=== PATIENT | female | born 1985 | race Caucasian/White ===

== ENCOUNTER 2023-06-29 21:28 | Inpatient (IN) | payer OTHER, SELFPAY ==
[2023-06-29 17:55] VITALS: BMI 40.1
[2023-06-29 18:01] VITALS: BP 114/86
--- NOTE | 2023-06-29 18:25 | ED.GENMED ---
History of Present Illness
<QUINN Foy - Last Filed: 06/29/23 21:41>
General
Chief Complaint: Skin Problem
Source: patient
Exam Limitations: none
Time Seen by Provider: 06/29/23 17:56
Travel History
Have you had any contact with someone who has COVID-19?: No
Do you have any symptoms of coronavirus? Fever > 100 degrees, chills, cough, shortness of breath, sore throat, loss of taste or smell, muscle aches, or headache?: No
History of Present Illness
History of Present Illness:
This is a 37 year old female that comes in with c/o left great toe swelling and redness. States that this started with a hole and blister on the base of the great toe. States that she thought it would go away and they had packed this but it has
gotten worse. States that she has been on Clindamycin and Bactrim for the past 2 weeks. States that they wanted to start an IV at [facility] but they couldn't find a vein. States that she doesn't know what they were going to put her on. Denies any
fever, chills, chest pain, SOB, abd pain, nausea, vomiting, diarrhea, headache, dizziness, urinary burning.
Past History
<QUINN Foy - Last Filed: 06/29/23 21:41>
Past History
ED Past Medical History: HTN, Hypercholesterolemia, NIDDM, Psychiatric (Anxiety, Depression) and Other (Neuropathy, )
ED Past Surgical History: (X 2)
Social History
Tobacco: Former smoker
Alcohol: None
Drug: Other (History of Fentynal use)
Personal: Single
Living: skilled nursing
Review of Systems
<QUINN Foy - Last Filed: 06/29/23 21:41>
Review of Systems
All Other Systems: ROS reviewed and negative except as documented in HPI and ROS
Constitutional: Reports no symptoms; Denies fever or chills
EENT: Reports no symptoms
Respiratory: Reports no symptoms; Denies cough or trouble breathing
Cardiac: Reports no symptoms; Denies chest pain
ABD/GI: Reports no symptoms; Denies abdominal pain, nausea, vomiting or diarrhea
: Reports no symptoms; Denies dysuria, frequency or urgency
Musculoskeletal: Reports no symptoms
Skin: Reports other (Redness and swelling of the left great toe with open wounds)
Neurological: Reports no symptoms; Denies dizzy or headache
Psychiatric: Reports no symptoms
Phy Exam
<QUINN Foy - Last Filed: 06/29/23 21:41>
General Physical Exam
General Presentation: well appearing and no apparent distress
General age: appears stated age
General Skin: warm and dry
General Habitus: normal
General Mental: alert
General Hydration: appears well hydrated
ENT Exam
ENT Exam: TM's normal, pharynx normal and neck supple
Eye Exam
Eye Exam: EOMI
Cardiovascular Exam
Cardiovascular Exam: regular rate/rhythm, no murmur and normal peripheral pulses
Pulmonary Exam
Pulmonary Exam: lungs clear, no respiratory distress, no rales, chest non tender, no crackles, no rhonchi, no wheezing and no cough
Gastrointestinal Exam
Gastrointestinal Exam: normal bowel sounds, non tender, soft, no organomegaly, no pulsatile mass and non distended
Musculoskeletal Exam
Musculoskeletal Exam: edema (of the left great toe with increased warmth)
Skin Exam
Skin Exam: normal color, warm/dry, no petechia and redness (Left great toe wit open wounds on the anterior and posterior toe and the planter aspect of the lateral foot, Slight increased warmth. )
Psychiatric Exam
Psychiatric Exam: normal mood/affect
Course
<QUINN Foy - Last Filed: 06/29/23 21:41>
Orders/Labs/Results
Orders:
Orders
06/29/23 18:24
Test Result ONCE
Toes 2 Views, Left CR [CR Toe(s) Min 2 Vw Left] Urgent
Comment:
Reason For Exam: Swelling with open wounds
Indicate Which Toe:: Great
06/29/23 19:18
Complete Blood Count/With Diff Urgent
Comprehensive Metabolic Panel Urgent
HCG, Serum Qualitative Screen Urgent
Lactic Acid Urgent
Blood Culture Q30M
NANI Source: Blood/Venous
Specimen Description:
06/29/23 19:26
Blood Culture Q30M
NANI Source: Blood/Venous
Specimen Description:
Wound Culture [Wound/Abscess/Other Culture] Urgent
NANI Source: Toe
Specimen Description:
Date Specimen was Collected: 06/29/23
Time Specimen was Collected: 19:22
06/29/23 20:16
Piperacillin/Tazo 3.375 Gram [Zosyn] 3.375 gram in 50 ml IV NOW
Vancomycin 1 Gram/200 ml [Vancocin] 1 gram in 200 ml IV NOW
06/29/23 20:29
Admit/Transfer Patient As Directed
Co-Sign Provider:
Level of Care: Inpatient admission
Assign to:: Medical/Surgical
Physician / Group: estela
Diagnosis: cellulitis toe
Reason for Hospitalization: cellulitis toe
Expected length of stay greater than two midnights?: Yes
ELOS- Estimated Length of Stay in days: 2
I certify the patient meets the requirements for IP care: Yes
06/29/23 20:30
Code Status As Directed
Resuscitation Status: Full Code
06/29/23 22:00
Cefepime HCl [Maxipime] 2,000 mg IV Q12H
Sterile Water [Sterile Water For Injection] 10 ml IV Q12H
Abnormal Lab Results
06/29/23
19:18
RBC 4.13 L 10^6/uL
(4.20-5.40)
Hgb 11.4 L g/dL
(12.0-16.0)
Hct 33.3 L %
(37.0-47.0)
MCV 80.6 L fL
(81.0-99.0)
Abs Immat Gran (auto) 0.1 H 10^3/uL
(0-0.05)
Absolute Lymphs (auto) 3.6 H 10^3/uL
(1.2-3.4)
Immature Gran % 1.0 H %
(0-0.5)
Neutrophils % 39.8 L %
(42.2-75.2)
Glucose 125 H mg/dl
(70-99)
06/29/23 19:18
06/29/23 19:18
H/H slighlty low. Glucose nonfasting. (patient is a diabedic), HCG negative. Lactic acid normal at 1.4
Vital Signs
Initial and Last Documented VS:
Initial Vital Signs
Temp Pulse Resp BP Pulse Ox
97.3 F 88 18 114/86 99
06/29/23 18:01 06/29/23 18:01 06/29/23 18:01 06/29/23 18:01 06/29/23 18:01
Last Documented Vital Signs
Temp Pulse Resp BP Pulse Ox
97.3 F 88 18 114/86 99
06/29/23 18:01 06/29/23 18:01 06/29/23 18:01 06/29/23 18:01 06/29/23 18:01
<Vicente Boykin MD - Last Filed: 06/29/23 20:30>
Orders/Labs/Results
Orders:
Orders
06/29/23 18:24
Test Result ONCE
Toes 2 Views, Left CR [CR Toe(s) Min 2 Vw Left] Urgent
Comment:
Reason For Exam: Swelling with open wounds
Indicate Which Toe:: Great
06/29/23 19:18
Complete Blood Count/With Diff Urgent
Comprehensive Metabolic Panel Urgent
HCG, Serum Qualitative Screen Urgent
Lactic Acid Urgent
Blood Culture Q30M
NANI Source: Blood/Venous
Specimen Description:
06/29/23 19:26
Blood Culture Q30M
NANI Source: Blood/Venous
Specimen Description:
Wound Culture [Wound/Abscess/Other Culture] Urgent
NANI Source: Toe
Specimen Description:
Date Specimen was Collected: 06/29/23
Time Specimen was Collected: 19:22
06/29/23 20:16
Piperacillin/Tazo 3.375 Gram [Zosyn] 3.375 gram in 50 ml IV NOW
Vancomycin 1 Gram/200 ml [Vancocin] 1 gram in 200 ml IV NOW
06/29/23 20:29
Admit/Transfer Patient As Directed
Co-Sign Provider:
Level of Care: Inpatient admission
Assign to:: Medical/Surgical
Physician / Group: estela
Diagnosis: cellulitis toe
Reason for Hospitalization: cellulitis toe
Expected length of stay greater than two midnights?: Yes
ELOS- Estimated Length of Stay in days: 2
I certify the patient meets the requirements for IP care: Yes
06/29/23 20:30
Code Status As Directed
Resuscitation Status: Full Code
06/29/23 22:00
Cefepime HCl [Maxipime] 2,000 mg IV Q12H
Sterile Water [Sterile Water For Injection] 10 ml IV Q12H
Abnormal Lab Results
06/29/23
19:18
RBC 4.13 L 10^6/uL
(4.20-5.40)
Hgb 11.4 L g/dL
(12.0-16.0)
Hct 33.3 L %
(37.0-47.0)
MCV 80.6 L fL
(81.0-99.0)
Abs Immat Gran (auto) 0.1 H 10^3/uL
(0-0.05)
Absolute Lymphs (auto) 3.6 H 10^3/uL
(1.2-3.4)
Immature Gran % 1.0 H %
(0-0.5)
Neutrophils % 39.8 L %
(42.2-75.2)
Glucose 125 H mg/dl
(70-99)
06/29/23 19:18
06/29/23 19:18
Vital Signs
Initial and Last Documented VS:
Initial Vital Signs
Temp Pulse Resp BP Pulse Ox
97.3 F 88 18 114/86 99
06/29/23 18:01 06/29/23 18:01 06/29/23 18:01 06/29/23 18:01 06/29/23 18:01
Last Documented Vital Signs
Temp Pulse Resp BP Pulse Ox
97.3 F 88 18 114/86 99
06/29/23 18:01 06/29/23 18:01 06/29/23 18:01 06/29/23 18:01 06/29/23 18:01
Carmenlt;QUINN Foy - Last Filed: 06/29/23 21:41>
MDM/Problems Addressed
Differential Diagnosis Includes:
Cellulitis, Osteomyelitis
MDM/Problems Addressed:
This is a 37 year old female that comes in with c/o redness and swelling of the left great toe. States that she has been on antibiotics for 2 weeks and that they were going to start IV antibioitic today but they were unable to get IV access.
Will check labs, X-ray toe.
Patient was seen by Dr. Boykin and he is in agreement to admit patient. Questioned patient about her Allergies to Amoxicillin. States that she was given 2 medication as the same time and they were not sure which one she was allergic to. States that
she has take Amoxicillin in the past without any difficulty. Will give Zosyn. Hospitalist notified about admission.
Chronic conditions affecting care: DM
Acute Exacerbation and/or Progression of Chronic Illness: DM
<QUINN Foy - Last Filed: 06/29/23 21:41>
*Radiology
Radiology exam reviewed: radiology read reviewed (Toe X-ray-No focal cortical bony destructive process, radiopaque soft tissue foreign body or soft tissue air/gas. )
*Pulse Oximetry
Patient hypoxic: no
*EKG
Interpreted by ED Provider?: NA
Rate: EKG- N/A
*Electrical Accessories Ii Assembler Interpretation
Rate: Electrical Accessories Ii Assembler- N/A
*Critical Care Note
Total Time (30-74mins, 75-104mins- exclusive of procedures): Not Applicable
ED Attending Note
<QUINN Foy - Last Filed: 06/29/23 21:41>
-
Portions of this chart may have been created with voice recognition software.� Occasional wrong word or��sound alike� substitutions may have occurred due to the inherent limitations of voice recognition software.
<Vicente Boykin MD - Last Filed: 06/29/23 20:30>
ED Attending Note
Patient seen and examined by attending physician: Yes
I performed the substantive portion of visit, reviewed & personally made and approve the management plan that is documented in note by myself or CORNELIA.: Yes
ED Attending Note:
Ongoing cellulitis and swelling to the left great toe. Has been on clindamycin and Bactrim for 1 to 2 weeks. No fever no systemic symptoms.
On exam left great toe is significantly swollen and erythematous. Some mild swelling and redness to the dorsal foot. Given a course of appropriate outpatient antibiotics with ongoing symptoms patient warrants IV antibiotics
Discharge Plan
Departure
Patient Disposition: Admit
Date of Disposition: 06/29/23
Time of Disposition: 20:20
Admit to: Med/Surg
Presentation/result/management discussed w/ accepting MD/DO: Hospitalist
Patient with high blood pressure during this ER visit?: No
Condition: Good
Covid-19: Not Applicable
Discharge Problem:
Cellulitis of great toe of left foot, Open wound of left great toe
Interventions
Interventions:
*Risk Screen - Suicide Last Done: 06/29/23 18:01
*General Assessment Last Done: 06/29/23 18:01
*Neglect/Abuse Screening Last Done: 06/29/23 18:01
*ED COVID-19 Vaccine History Last Done: 06/29/23 18:01
[2023-06-29 19:28] LABS: % Basophils 0.6 % (0-2); % Eosinophils 5.8 % (0-6); % Lymphocytes 46.2 % (20.5-51.1); % Monocytes 6.6 % (1.7-9.3); % Neutrophils 39.8 % (42.2-75.2); Absolute Basophils 0.1 10^3/uL (0-0.2); Absolute Eosinophils 0.5 10^3/uL (0-0.7); Absolute Immature Granulocytes 0.1 10^3/uL (0-0.05); Absolute Lymphocytes 3.6 10^3/uL (1.2-3.4); Absolute Monocytes 0.5 10^3/uL (0.1-0.6); Absolute Neutrophils 3.1 10^3/uL (1.4-6.5); Hematocrit 33.3 % (37.0-47.0); Hemoglobin 11.4 g/dL (12.0-16.0); Mean Corp Hgb Conc. 34.2 g/dL (33.0-37.0); Mean Corpuscular Hgb 27.6 pg (27.0-31.0); Mean Corpuscular Volume 80.6 fL (81.0-99.0); Nucleated Red Blood Cells % 0 %; Platelet Count 341 10^3/uL (130-400); Red Blood Cell Count 4.13 10^6/uL (4.20-5.40); Red Cell Dist. Width 11.6 % (11.5-14.5); White Blood Cell Count 7.8 10^3/uL (4.8-10.8)
[2023-06-29 19:40] LABS: Lactic Acid 1.4 mmol/L (0.7-2.0)
[2023-06-29 19:43] LABS: HCG, Serum Qualitative Screen Negative
[2023-06-29 19:45] LABS: ALT (SGPT) 13 U/L (0-35); AST (SGOT) 18 U/L (14-36); Albumin 4.2 g/dl (3.5-5.0); Alkaline Phosphatase 77 U/L (38-126); Blood Urea Nitrogen 16 mg/dl (7-17); Calcium 9.3 mg/dl (8.4-10.2); Carbon Dioxide 27 mmol/L (22-30); Chloride 100 mmol/L (98-107); Estimated Creatinine Clearance 118 ml/min; Glucose 125 mg/dl (70-99); Potassium 4.6 mmol/L (3.5-5.1); Sodium 135 mmol/L (135-145); Total Bilirubin 0.3 mg/dl (0.2-1.3); Total Protein 7.2 g/dl (6.3-8.2); eGFR > 60.00
--- NOTE | 2023-06-29 20:32 | HPS.HSE ---
Addendum entered and electronically signed by Irena Cox MD 06/29/23 20:36:
Cefepime instead of zosyn due to allergy.
Original Note:
Family Physician
-
Family Physician: Facility [facility]
Chief Complaint
-
left toe swelling
History of Present Illness
37-year-old female past medical history of hypertension, hypercholesteremia, diabetes, anxiety/depression, neuropathy, presenting from [facility] with left great toe swelling and redness. Originally started as a wound and blister on the base of the
great toe. Denies any drainage from the blister. She was treated with clindamycin and Bactrim for 2 weeks. Since then the swelling and redness and has spread to the dorsum of the toe. Denies pain due to neuropathy. Denies fevers or chills,
chest pain, shortness of breath abdominal pain, nausea vomiting, diarrhea, headache, dizziness or urinary symptoms.
She states her A1c was recently 6.1. Blood sugars are usually in 120s.
She denies any recent alcohol, smoking or marijuana use since she is currently incarcerated for 9 months.
Medical History
Past Medical History
Past Medical History: Reports Other (hypertension, hypercholesteremia, diabetes, anxiety/depression, neuropathy,)
Past Surgical History: Reports
Social History
Tobacco: Former Smoker
Alcohol: Occasional
Drug: None
Family History
Family History: Not pertinent
Allergies / Home Medications
Allergies reflects when Allergies were last updated in [facility].
Home Medications with original date entered in [facility]
Allergy/Medication List:
Allergies
Allergy/AdvReac Type Severity Reaction Status Date / Time
amoxicillin [From Augmentin] Allergy Swelling Verified 06/29/23 18:11
clavulanic acid Allergy Swelling Verified 06/29/23 18:11
[From Augmentin]
Review of Systems
-
History Source: Patient
A 12 point ROS was completed and negative except as noted: Yes
Constitutional: Reports No Symptoms
EENT: Reports No Symptoms
Respiratory: Reports No Symptoms
Cardiac: Reports No Symptoms
Abdomen/GI: Reports No Symptoms
: Reports No Symptoms
Musculoskeletal: Reports No Symptoms
Skin: Reports See HPI
Neurological: Reports No Symptoms
Endocrine: Reports No Symptoms
Hematologic/Lymphatic: Reports No Symptoms
Psych: Reports No Symptoms
Physical Exam
Vital Signs
Vital Signs
Temp Pulse Resp BP Pulse Ox
97.3 F 88 18 114/86 99
06/29/23 18:01 06/29/23 18:01 06/29/23 18:01 06/29/23 18:01 06/29/23 18:01
Physical Exam
General: Well Developed, Well Nourished and No Apparent Distress
HEENT: NormoCephalic, Moist mucous membranes and Atraumatic
Respiratory: Clear
Cardiac: S1/S2 and Regular Rhythm; No Murmur or Rub
GI: Soft, Non Tender, Non Distended and Normal Bowel Sounds; No Organomegaly
Rectal: Deferred by Provider
Musculoskeletal: No Clubbing, No Cyanosis and No Edema
Skin: Other (left big toe swelling, erythema, with wound at base ); No Rash
Neuro: Nonfocal/grossly intact
Laboratory Results
-
06/29/23 19:18
06/29/23 19:18
Laboratory Results
Lactic Acid 1.4 mmol/L (0.7-2.0) 06/29/23 19:18
Total Bilirubin 0.3 mg/dl (0.2-1.3) 06/29/23 19:18
AST 18 U/L (14-36) 06/29/23 19:18
ALT 13 U/L (0-35) 06/29/23 19:18
Alkaline Phosphatase 77 U/L (38-126) 06/29/23 19:18
Data Reviewed
-
Lab Data: Labs Reviewed by me
Old Records: Reviewed
Impression/Plan
-
IMPRESSION:
PLAN:
# Left big toe cellulitis
-Does not appear like deep infection however toe x-ray pending to evaluate for osteomyelitis given history of diabetes/diabetic neuropathy
-Wound culture pending
-Blood cultures pending
-Vancomycin, Zosyn
Type 2 diabetes
-Continue metformin
-Insulin sliding scale
Diabetic neuropathy
Essential hypertension
Hypercholesterolemia
Anxiety/depression
-Continue Seroquel, hydroxyzine
Full code
DVT prophylaxis�heparin
Diabetic diet
[2023-06-29] MEDS: ZOSYN 50 IV (20:46)
[2023-06-29] MEDS: VANCOCIN 200 IV ×2 (21:08→23:12)
[2023-06-29 21:57] VITALS: BP 116/87
[2023-06-29] MEDS: MINIPRESS 2 MG PO (22:38)
[2023-06-29] MEDS: PROTONIX 40 MG PO (22:40)
[2023-06-29] MEDS: LIPITOR 20 MG PO (22:41)
[2023-06-29] MEDS: SEROQUEL 100 MG PO (22:42)
[2023-06-29] MEDS: PAMELOR 25 MG PO (22:43)
[2023-06-29] MEDS: MAXIPIME 2000 MG IV (22:45)
[2023-06-29] MEDS: STERILE WATER FOR INJECTION 10 ML IV (22:46)
--- NOTE | 2023-06-29 22:50 | PHA.VAN.IN ---
Assessment
- Assessment
Renal Function: Unknown baseline
Concomitant Antimicrobials: ZOSYN
- Previous Dosing Experience
Previous Regimen: NONE
AUC Dosing Plan
- Dosing Variables
Dosing Weight (kg): 109.3
Dosing CrCl (ml/min): 118
Vd coefficient (L/kg): 0.5
- Empiric Dosing
Initial / Loading Dose: 2GM TOTAL
Maintenance Regimen: 750MG IV Q8H
Estimated AUC (mcg*h/mL): 423
Estimated Peak (mcg*h/mL): 24.6
Estimated Trough (mcg/ml): 12
Estimated Half Life (H): 6.8
Pharmacokinetics Vancomycin I
- -
Patient Age: 37
Patient Sex: Female
Vancomycin Day #: 1
Indication: Skin And Soft Tissue ([L] BIG TOE CELLULITIS)
Requesting Provider: JUAN DIEGO
Height / Weight:
Height 5 ft 5 in
Actual Weight 109.316 kg
Pertinent Past Medical History: FAILED OUTPT TX W/CLINDAMYCIN AND BACTRIM
- Vital Signs / Lab Results
Temp Pulse Resp BP Pulse Ox
97.3 F 83 18 124/67 97
06/29/23 18:01 06/29/23 22:38 06/29/23 21:57 06/29/23 22:38 06/29/23 21:57
Lab Results - Hematology
06/29/23
19:18
WBC 7.8
Lab Results - Chemistry
06/29/23
19:18
BUN 16
Creatinine 0.8
Estimated Creat Clear 118
Albumin 4.2
06/29/23
19:18
Lactic Acid 1.4
[2023-06-30 05:39] LABS: % Basophils 0.6 % (0-2); % Eosinophils 6.2 % (0-6); % Immature Granulocytes 0.8 % (0-0.5); % Neutrophils 34.4 % (42.2-75.2); Absolute Eosinophils 0.4 10^3/uL (0-0.7); Absolute Immature Granulocytes 0.1 10^3/uL (0-0.05); Absolute Lymphocytes 3.3 10^3/uL (1.2-3.4); Absolute Monocytes 0.5 10^3/uL (0.1-0.6); Absolute Neutrophils 2.2 10^3/uL (1.4-6.5); Hematocrit 33.4 % (37.0-47.0); Hemoglobin 11.3 g/dL (12.0-16.0); Mean Corp Hgb Conc. 33.8 g/dL (33.0-37.0); Mean Corpuscular Hgb 28.3 pg (27.0-31.0); Mean Corpuscular Volume 83.7 fL (81.0-99.0); Mean Platelet Volume 8.1 fL (7.4-10.4); Nucleated Red Blood Cells % 0 %; Platelet Count 306 10^3/uL (130-400); Red Blood Cell Count 3.99 10^6/uL (4.20-5.40); Red Cell Dist. Width 11.4 % (11.5-14.5); White Blood Cell Count 6.4 10^3/uL (4.8-10.8)
[2023-06-30 06:02] LABS: ALT (SGPT) 13 U/L (0-35); AST (SGOT) 20 U/L (14-36); Albumin 3.8 g/dl (3.5-5.0); Alkaline Phosphatase 71 U/L (38-126); Blood Urea Nitrogen 14 mg/dl (7-17); Calcium 9.5 mg/dl (8.4-10.2); Carbon Dioxide 24 mmol/L (22-30); Chloride 101 mmol/L (98-107); Estimated Creatinine Clearance > 125 ml/min; Glucose 115 mg/dl (70-99); Potassium 4.8 mmol/L (3.5-5.1); Sodium 136 mmol/L (135-145); Total Bilirubin 0.4 mg/dl (0.2-1.3); Total Protein 6.6 g/dl (6.3-8.2); eGFR > 60.00
[2023-06-30] MEDS: VANCOCIN 150 IV (06:12)
[2023-06-30] MEDS: HEPARIN 5000 UNITS SC ×2 (07:12→22:04)
[2023-06-30] MEDS: MIRALAX 17 GRAMS PO (07:13)
[2023-06-30] MEDS: CYMBALTA DELAYED RELEASE 60 MG PO (07:13)
[2023-06-30] MEDS: SUBUTEX 8 MG SL (07:13)
[2023-06-30 07:17] VITALS: BP 113/78
[2023-06-30] MEDS: ZESTRIL 5 MG PO (07:18)
[2023-06-30] MEDS: ORETIC 25 MG PO (07:18)
[2023-06-30 07:27] LABS: Glucose - Point of Care 124 mg/dl (70-99)
[2023-06-30] MEDS: NOVOLOG FLEXPEN-LOW RESISTANCE SC ×2 (07:28→12:47)
[2023-06-30] MEDS: CYMBALTA DELAYED RELEASE 30 MG PO (07:41)
--- NOTE | 2023-06-30 09:07 | PHA.VAN.FU ---
Vancomycin Assessment / Plan
- Assessment
Renal Function: Stable
WBC's are: WNL
Concomitant Antimicrobials: cefepime
- Dosing Plan
Adjust Regimen to: Vanc 1000mg Q8H starting at 1400
New Regimen Predicts: AUC (447), Peak (26.4), Trough (12.4)
Dosing Comments: predicted half-life 6.4H based on population PK
- Monitoring Plan
No level(s) ordered at this time: consider levels in next few days
- Follow Up
Pharmacy will continue to follow.
Vancomycin Follow UP
- -
Patient Age: 37
Patient Sex: Female
Vancomycin Day #: 2
Indication: Skin And Soft Tissue
Requesting Provider: Dr. Cox
Pertinent Antimicrobial Allergies:
amoxicillin/clavulanate - swelling
Height / Weight:
Height 5 ft 5 in
Actual Weight 109.316 kg
Pertinent Past Medical History: BMI ~40, DM
- Vital Signs / Lab Results
Temp Pulse Resp BP Pulse Ox
97.3 F 78 18 113/78 99
06/29/23 18:01 06/30/23 07:18 06/30/23 07:17 06/30/23 07:18 06/30/23 07:17
Lab Results - Hematology
06/29/23 06/30/23
19:18 04:54
WBC 7.8 6.4
Lab Results - Chemistry
06/29/23 06/30/23
19:18 04:54
BUN 16 14
Creatinine 0.8 0.6
Estimated Creat Clear 118 > 125
Albumin 4.2 3.8
06/29/23
19:18
Lactic Acid 1.4
[2023-06-30] MEDS: MAXIPIME 2000 MG IV ×2 (09:14→22:04)
[2023-06-30 09:34] LABS: Glycohemoglobin (HgbA1c) 6.6 % (4.0-5.6)
[2023-06-30] MEDS: STERILE WATER FOR INJECTION IV (10:45)
[2023-06-30 10:47] VITALS: BP 112/60
[2023-06-30 11:29] LABS: Glucose - Point of Care 175 mg/dl (70-99)
[2023-06-30 12:49] LABS: Glucose - Point of Care 124 mg/dl (70-99)
--- NOTE | 2023-06-30 13:34 | CM ---
Cm reviewed medical records. Patient is currently in police custody. Plan to discharge back to [facility] on discharge.
PLAN: [facility]
[2023-06-30 13:43] VITALS: BP 109/74
--- NOTE | 2023-06-30 14:13 | W.PN.HOSP.TC ---
Today's Communication/Plan
-
Podiatry consult and possible discharge tomorrow
Assessment / Plan
Assessment / Plan
# Left big toe cellulitis
-Does not appear like deep infection however toe x-ray pending to evaluate for osteomyelitis given history of diabetes/diabetic neuropathy
-Wound culture pending
-Blood cultures pending
-Vancomycin, Zosyn
06/29
X-ray showed: The osseous structures comprising the left great toe appear intact without recent cortical fracture, dislocation or focal cortical bony destructive process.
Diffuse soft tissue swelling is noted. No radiopaque soft tissue foreign body or air/gas is seen.
Continue to antibiotic.
Podiatry consult.
Possible discharge tomorrow
Type 2 diabetes
-Continue metformin
-Insulin sliding scale
Diabetic neuropathy
Essential hypertension
Hypercholesterolemia
Anxiety/depression
-Continue Seroquel, hydroxyzine
Full code
DVT prophylaxis�heparin
Diabetic diet
Anticipated Discharge: Within 24 hours
Subjective/Interval History
-
Date of Service: June 30, 2023
Patient seen and examined at bedside, denies any chest pain or shortness of breath, no abdominal pain, no nausea, no vomiting, no diarrhea or constipation.
Podiatry consult.
Objective Data
-
Labs:
Laboratory Results
06/30/23
04:54
WBC 6.4
Hgb 11.3 L
Hct 33.4 L
Plt Count 306
Sodium 136
Potassium 4.8
Chloride 101
Carbon Dioxide 24
BUN 14
Creatinine 0.6
Glucose 115 H
Calcium 9.5
Total Bilirubin 0.4
AST 20
ALT 13
Alkaline Phosphatase 71
Vital Signs:
Vital Signs
Temp Pulse Resp BP Pulse Ox
98.6 F 86 18 109/74 98
06/30/23 13:43 06/30/23 13:43 06/30/23 13:43 06/30/23 13:43 06/30/23 13:43
I&O
06/29/23 06/30/23 07/01/23
06:59 06:59 06:59
Intake Total 1000 / 1000
Output Total 501 / 501
Balance 499 / 499
Physical Exam
-
General: Well Developed and No Apparent Distress
HEENT: Normocephalic, Atraumatic and Moist Mucous Membranes
Respiratory: Clear to Auscultation
Cardiac: Regular Rhythm and S1/S2; Negative Murmur, Rub or Gallop
GI: Soft, Nontender, Nondistended and Normal Bowel Sounds; Negative Organomegaly
Rectal: Deferred by Provider
Musculoskeletal: Other (Left big toe swelling and redness)
Skin: Negative Rash
Neuro: Nonfocal/Grossly Intact
[2023-06-30] MEDS: VANCOCIN 200 IV ×2 (14:37→22:02)
[2023-06-30 15:31] VITALS: BP 111/71
[2023-06-30] MEDS: BENADRYL 25 MG PO (16:14)
--- NOTE | 2023-06-30 16:15 | PTCARENOTE ---
Pt pointing out light red/pink flat blotchy rash on arm proximal to IV site during vanco infusion. Reports slightly itchy but tolerable, no pain, no sign of infiltrate. Infusion stopped. MD notified. Ordered PO benadryl and completed vanco dose.
Rash resolved.
[2023-06-30 16:56] LABS: Glucose - Point of Care 160 mg/dl (70-99)
[2023-06-30] MEDS: NOVOLOG FLEXPEN-LOW RESISTANCE 1 UNITS SC (16:59)
--- NOTE | 2023-06-30 19:41 | W.PN.POD ---
Today's Communication
- Today's Communication
consult for left big toe infection
Assessment / Plan
- -
cellulitis left hallux with severe swelling and redness
concern for osteomyelitis
suggest MRI left foot
Subjective/Objective
- Subjective
37 y/o female presents with left hallux increased swelling and redness
started with hole and blister at base of big toe
was on clindamycin and bactrim for 2 weeks with no progress
attempted IV antibiotics at skilled nursing but unable to find a vein
sent to ER with increased swelling and redness
blood and wound cultures taken
IV zosyn and vancomycin
x-rays taken negative for osteomyelitis
- Objective
Temp Pulse Resp BP Pulse Ox
97.8 F 86 17 111/71 97
06/30/23 15:31 06/30/23 15:31 06/30/23 15:31 06/30/23 15:31 06/30/23 15:31
06/30/23 04:54
06/30/23 04:54
Vital Signs and Lab results were reviewed.
Severe swelling left hallux with erythema entire toe
increased warmth in area
2 small serous draining wounds medial and lateral hallux at IPJ
possibly self inflicted
hallux nail borders ingrown tip. tibial at epinychium
some swelling and redness into dorsum of foot
[2023-06-30 21:43] LABS: Glucose - Point of Care 130 mg/dl (70-99)
[2023-06-30] MEDS: STERILE WATER FOR INJECTION 10 ML IV (22:03)
[2023-06-30] MEDS: SEROQUEL 100 MG PO (22:03)
[2023-06-30] MEDS: PROTONIX 40 MG PO (22:03)
[2023-06-30] MEDS: LIPITOR 20 MG PO (22:04)
[2023-06-30] MEDS: PAMELOR 25 MG PO (22:04)
[2023-06-30] MEDS: MINIPRESS 2 MG PO (22:06)
[2023-06-30 23:06] VITALS: BP 119/73
[2023-06-30] MEDS: ATARAX 75 MG PO (23:43)
[2023-07-01] MEDS: BENADRYL 25 MG PO (05:50)
[2023-07-01] MEDS: FLUSH (NSS) 2 FLUSH IV (05:52)
[2023-07-01] MEDS: VANCOCIN 200 IV ×3 (05:53→21:25)
--- NOTE | 2023-07-01 06:33 | PTCARENOTE ---
Patient continues with small flat red rash shortly after administration of both IV ABX. Rash is localized to area around IV site. Benadryl as per prn order.
[2023-07-01] MEDS: SUBUTEX 8 MG SL (07:15)
[2023-07-01 07:34] VITALS: BP 113/62
[2023-07-01] MEDS: MIRALAX 17 GRAMS PO (07:35)
[2023-07-01] MEDS: CYMBALTA DELAYED RELEASE 30 MG PO (07:36)
[2023-07-01] MEDS: CYMBALTA DELAYED RELEASE 60 MG PO (07:36)
[2023-07-01] MEDS: HEPARIN 5000 UNITS SC ×2 (07:36→21:22)
[2023-07-01] MEDS: ZESTRIL 5 MG PO (07:37)
[2023-07-01] MEDS: ORETIC 25 MG PO (07:37)
[2023-07-01 07:42] LABS: Glucose - Point of Care 148 mg/dl (70-99)
[2023-07-01] MEDS: NOVOLOG FLEXPEN-LOW RESISTANCE SC ×2 (07:42→17:03)
[2023-07-01] MEDS: ATARAX 75 MG PO (07:57)
--- NOTE | 2023-07-01 09:45 | CON.ID ---
Addendum entered and electronically signed by Lana Garcia MD 07/01/23 10:36:
ADDENDUM: Location of diabetic foot infection is LEFT great toe (not right) with wound on medial side of toe.
Original Note:
Consultation
-
Date/Time Consultation Requested: June 30, 2023 9568
Date/Time Consultation Performed: July 01, 2023 [id number]
Requesting Provider: Dr. Amilcar Chiu
Performing Provider: Dr. Lana Garcia
Reason for Consultation: Right big toe infection
Chief Complaint / Past History
Chief Complaint
Worsening right great toe redness and swelling
History of Present Illness
37-year-old female with diabetes mellitus, neuropathy, currently in nursing home who initially developed a blister at the bottom of her right first toe approximately 2 months ago. The blister turned into a large wound. She was placed on several courses
of antibiotics. Eventually the wound healed. However she then developed a wound on the lateral aspect of the toe. About 2 weeks ago her toe became very edematous and red. She was placed on clindamycin and Bactrim without improvement. The
redness progressed up to the forefoot. She was therefore sent to the hospital on June 28. She is currently on vancomycin and cefepime. X-ray of the foot showed no osteomyelitis. She was seen by podiatry who is concerned for underlying
osteomyelitis. MRI has been ordered. She reports that the lateral wound is draining mild amount of clear fluid. There is some improvement of the redness since being in the hospital. No fever or chills.
Past History
Additional Past Medical History:
Hypertension
Diabetes
Neuropathy
Dyslipidemia
Anxiety/depression
Class III obesity BMI 40
Allergy History:
PATIENT DENIES ALLERGY TO AUGMENTIN. SHE TOLERATED AMOXICILLIN MANY TIMES IN THE PAST.
SHE RECEIVED AUGMENTIN AND ANOTHER DRUG AT THE SAME TIME THEN DEVELOPED SWELLING. SWELLING IS FROM THE OTHER DRUG.
amoxicillin [From Augmentin] Allergy (Verified 06/29/23 18:11)
Swelling
clavulanic acid [From Augmentin] Allergy (Verified 06/29/23 18:11)
Swelling
Medications Reviewed: Yes
Current Antibiotics:
Vancomycin
Cefepime
Social History
Tobacco: Former Smoker
Alcohol: Occasional
Living: Shelter
Family History
Family History: Not Pertinent
Review of Systems
Review of Systems
General: Negative Fever, Chills or Change in Appetite
HEENT: Negative Stiff Neck, Sinus Problems, Headache or Pharyngitis
Cardiovascular: Negative Chest Pain
Respiratory: Negative Dyspnea or Cough
Gasteroenterology: Other (no diarrhea); Negative Nausea or Vomiting
Genital / Urological: Negative Dysuria or Flank Pain
Endocrine: Negative Weakness
Neurological: Negative Headache or Dizziness
All systems: All other systems were reviewed and were negative
Vital Signs
Temp Pulse Resp BP Pulse Ox
98.4 F 84 16 113/62 100
07/01/23 07:34 07/01/23 07:37 07/01/23 07:34 07/01/23 07:37 07/01/23 07:34
Physical Exam
Physical Exam
Constitutional: No Acute Distress and Comfortable
Eyes: No Conjunctival Hemorrhage and Sclera Anicteric
Pulmonary: Clear
Gastrointestinal: Soft, Non Tender and Non Distended
Extremities: Pulses (palpable strong pedal pulses right dorsal pedalis); Negative Edema
Wound: Other (Right hallux: significant erythema, + scab base of toe; lateral toe with 3mm wound serous drainage surrounded by erythema and warmth to met head)
Neurological: AO x 3
Lab / Diagnostic Study Results
06/30/23 04:54
06/30/23 04:54
Abs Immat Gran (auto) 0.1 10^3/uL (0-0.05) H 06/30/23 04:54
Absolute Neuts (auto) 2.2 10^3/uL (1.4-6.5) 06/30/23 04:54
Absolute Lymphs (auto) 3.3 10^3/uL (1.2-3.4) 06/30/23 04:54
Absolute Monos (auto) 0.5 10^3/uL (0.1-0.6) 06/30/23 04:54
Absolute Basos (auto) 0.0 10^3/uL (0-0.2) 06/30/23 04:54
Immature Gran % 0.8 % (0-0.5) H 06/30/23 04:54
Neutrophils % 34.4 % (42.2-75.2) L 06/30/23 04:54
Lymphocytes % 51.0 % (20.5-51.1) 06/30/23 04:54
Monocytes % 7.0 % (1.7-9.3) 06/30/23 04:54
Eosinophils % 6.2 % (0-6) H 06/30/23 04:54
Basophils % 0.6 % (0-2) 06/30/23 04:54
Lactic Acid 1.4 mmol/L (0.7-2.0) 06/29/23 19:18
Microbiology Results
Micro:
06/29/23 19:26 Blood Culture - Preliminary
Blood/Venous No Growth in 24 hours- Final report to follow
06/29/23 19:18 Blood Culture - Preliminary
Blood/Venous No Growth in 24 hours- Final report to follow
06/29/23 19:26 Wound Culture - Preliminary
Toe Gram Stain - Preliminary
06/29/23 Toe XRAY: No focal cortical bony destructive process, radiopaque soft tissue foreign body or soft tissue air/gas.
Assessment / Plan
# Right hallux diabetic ulcer with cellulitis and probable osteomyelitis
- Agree with MRI w and wo.
- Can continue Vancomycin and cefepime for now pending MRI.
- Follow clinically.
[2023-07-01] MEDS: MAXIPIME 2000 MG IV ×2 (09:53→21:28)
[2023-07-01] MEDS: STERILE WATER FOR INJECTION 10 ML IV ×2 (09:54→21:28)
--- NOTE | 2023-07-01 10:37 | PHA.VAN.FU ---
Vancomycin Assessment / Plan
- Assessment
Renal Function: SCR Decreasing (WNL)
WBC's are: WNL
In the past 24 hrs, patient has been: Afebrile
Concomitant Antimicrobials: cefepime
- Dosing Plan
Continue: vancomycin 1000 mg q8h - first dose 1400 on 06/30/23
- Monitoring Plan
Peak Level: 07/01 00:30 - after 5th 1000 mg dose
Trough Level: 07/01 05:30
- Follow Up
Pharmacy will continue to follow.
Vancomycin Follow UP
- -
Patient Age: 37
Patient Sex: Female
Vancomycin Day #: 3
Indication: Skin And Soft Tissue
Requesting Provider: Dr. Cox
Pertinent Antimicrobial Allergies:
amoxicillin/clavulanate - swelling
Height / Weight:
Height 5 ft 5 in
Actual Weight 109.316 kg
Pertinent Past Medical History: BMI ~40, DM
- Vital Signs / Lab Results
Temp Pulse Resp BP Pulse Ox
98.4 F 84 16 113/62 100
07/01/23 07:34 07/01/23 07:37 07/01/23 07:34 07/01/23 07:37 07/01/23 07:34
Lab Results - Hematology
06/29/23 06/30/23
19:18 04:54
WBC 7.8 6.4
Lab Results - Chemistry
06/29/23 06/30/23
19:18 04:54
BUN 16 14
Creatinine 0.8 0.6
Estimated Creat Clear 118 > 125
Albumin 4.2 3.8
06/29/23
19:18
Lactic Acid 1.4
Microbiology Results
06/29/23 19:26 Blood Culture - Preliminary
Blood/Venous No Growth in 24 hours- Final report to follow
06/29/23 19:18 Blood Culture - Preliminary
Blood/Venous No Growth in 24 hours- Final report to follow
06/29/23 19:26 Wound Culture - Preliminary
Toe Gram Stain - Preliminary
[2023-07-01 11:30] LABS: Glucose - Point of Care 160 mg/dl (70-99)
--- NOTE | 2023-07-01 14:32 | CM ---
Case management following for d/c planning
Chart reviewed
Pt from [facility]
Admitted with right hallux diabetic ulcer with cellulitis and probable osteomyelitis
Pending MRI
Receiving Vancomycin and cefepime
Plan - return to [facility] when medically stable
P - [phone]
[2023-07-01] MEDS: NOVOLOG FLEXPEN-LOW RESISTANCE 1 UNITS SC (14:51)
[2023-07-01 15:14] VITALS: BP 108/73
--- NOTE | 2023-07-01 15:15 | W.PN.HOSP.TC ---
Today's Communication/Plan
-
Discharge if MRI negative
Assessment / Plan
Assessment / Plan
# Left big toe cellulitis rule out osteomyelitis
-Does not appear like deep infection however toe x-ray pending to evaluate for osteomyelitis given history of diabetes/diabetic neuropathy
-Wound culture pending
-Blood cultures pending
-Vancomycin, Zosyn
06/29
X-ray showed: The osseous structures comprising the left great toe appear intact without recent cortical fracture, dislocation or focal cortical bony destructive process.
Diffuse soft tissue swelling is noted. No radiopaque soft tissue foreign body or air/gas is seen.
Continue to antibiotic.
Podiatry consult.
Possible discharge tomorrow
06/30
Seen by podiatry and infectious disease.
Pending MRI
Type 2 diabetes
-Continue metformin
-Insulin sliding scale
Diabetic neuropathy
History of hypertension
Continue current meds
History of hyperlipidemia
Continue statin
Anxiety/depression
-Continue Seroquel, hydroxyzine
CODE STATUS: Full code
DVT prophylaxis: Heparin
Diet: Diabetic diet
Anticipated Discharge: Within 24 hours
Subjective/Interval History
-
Date of Service: July 01, 2023
Patient seen and examined at bedside, denies any chest pain or shortness of breath, no abdominal pain, no nausea, no vomiting, no diarrhea or constipation.
Pending MRI
Objective Data
-
Vital Signs:
Vital Signs
Temp Pulse Resp BP Pulse Ox
98.0 F 87 16 108/73 99
07/01/23 15:14 07/01/23 15:14 07/01/23 15:14 07/01/23 15:14 07/01/23 15:14
I&O
06/30/23 07/01/23 07/02/23
06:59 06:59 06:59
Intake Total 1000 / 1000 1140 / 1140
Output Total 501 / 501
Balance 499 / 499 1140 / 1140
Physical Exam
-
General: Well Developed and No Apparent Distress
HEENT: Normocephalic, Atraumatic and Moist Mucous Membranes
Respiratory: Clear to Auscultation
Cardiac: Regular Rhythm and S1/S2; Negative Murmur, Rub or Gallop
GI: Soft, Nontender, Nondistended and Normal Bowel Sounds; Negative Organomegaly
Rectal: Deferred by Provider
Musculoskeletal: Other (Left big toe swelling and redness)
Skin: Negative Rash
Neuro: Nonfocal/Grossly Intact
[2023-07-01 16:37] LABS: Glucose - Point of Care 116 mg/dl (70-99)
[2023-07-01] MEDS: PAMELOR 25 MG PO (21:23)
[2023-07-01] MEDS: PROTONIX 40 MG PO (21:24)
[2023-07-01] MEDS: LIPITOR 20 MG PO (21:24)
[2023-07-01] MEDS: SEROQUEL 100 MG PO (21:24)
[2023-07-01] MEDS: MINIPRESS 2 MG PO (21:26)
[2023-07-01 21:28] LABS: Glucose - Point of Care 131 mg/dl (70-99)
[2023-07-01 23:39] VITALS: BP 120/81
[2023-07-02 01:55] LABS: Vancomycin Peak 25.5 ug/ml (18-26)
[2023-07-02 06:50] LABS: Hemoglobin 11.8 g/dL (12.0-16.0); Mean Corp Hgb Conc. 32.8 g/dL (33.0-37.0); Mean Corpuscular Hgb 27.4 pg (27.0-31.0); Mean Corpuscular Volume 83.5 fL (81.0-99.0); Platelet Count 330 10^3/uL (130-400); Red Blood Cell Count 4.31 10^6/uL (4.20-5.40); Red Cell Dist. Width 11.4 % (11.5-14.5); White Blood Cell Count 6.7 10^3/uL (4.8-10.8)
[2023-07-02 06:58] LABS: Blood Urea Nitrogen 22 mg/dl (7-17); Calcium 10.3 mg/dl (8.4-10.2); Carbon Dioxide 29 mmol/L (22-30); Chloride 98 mmol/L (98-107); Estimated Creatinine Clearance 118 ml/min; Glucose 134 mg/dl (70-99); Sodium 137 mmol/L (135-145); eGFR > 60.00
[2023-07-02 07:17] VITALS: BP 111/76
[2023-07-02] MEDS: SUBUTEX 8 MG SL (07:17)
[2023-07-02] MEDS: CYMBALTA DELAYED RELEASE 30 MG PO (07:18)
[2023-07-02] MEDS: ORETIC 25 MG PO (07:18)
[2023-07-02] MEDS: CYMBALTA DELAYED RELEASE 60 MG PO (07:18)
[2023-07-02 07:19] LABS: Glucose - Point of Care 140 mg/dl (70-99)
[2023-07-02] MEDS: MIRALAX 17 GRAMS PO (07:19)
[2023-07-02] MEDS: HEPARIN 5000 UNITS SC ×2 (07:19→20:25)
[2023-07-02] MEDS: ZESTRIL 5 MG PO (07:19)
[2023-07-02 07:25] LABS: Vancomycin Trough 18.1 ug/ml (5-20)
[2023-07-02] MEDS: NOVOLOG FLEXPEN-LOW RESISTANCE SC ×2 (07:35→16:33)
--- NOTE | 2023-07-02 08:03 | PHA.VAN.FU ---
Vancomycin Assessment / Plan
- Assessment
Renal Function: Stable
WBC's are: Stable
In the past 24 hrs, patient has been: Afebrile
Concomitant Antimicrobials: Cefepime
- Assessment - Therapeutic Drug Monitoring
Extrapolated Cmax (mcg/mL): 30.4
Peak level was drawn: Appropriately
Extrapolated Cmin (mcg/mL): 19.2
Trough Drawn: Appropriately
Levels were drawn: At steady state
Calculated AUC (mcg*h/mL): 586
Calculated ke: 0.0657
Calculated half life (H): 10.5
Calculated Vd (L): 77.92
Calculated Vanc CL (ml/min): 85.33
- Dosing Plan
Adjust Regimen to: Vanc 1250mg IV q12H (T1/2 = 10.5hrs)
New Regimen Predicts: AUC (512), Peak (29.4), Trough (14.8)
- Monitoring Plan
No level(s) ordered at this time: Consider levels after 07/02 1800 dose
- Follow Up
Pharmacy will continue to follow.
Vancomycin Follow UP
- -
Patient Age: 37
Patient Sex: Female
Vancomycin Day #: 4
Indication: Skin And Soft Tissue
Requesting Provider: Dr. Cox
Pertinent Antimicrobial Allergies:
amoxicillin/clavulanate - swelling
Height / Weight:
Height 5 ft 5 in
Actual Weight 109.316 kg
Pertinent Past Medical History: BMI ~40, DM
- Vital Signs / Lab Results
Temp Pulse Resp BP Pulse Ox
98.0 F 91 16 111/76 98
07/02/23 07:17 07/02/23 07:18 07/02/23 07:17 07/02/23 07:18 07/02/23 07:17
Lab Results - Hematology
06/29/23 06/30/23 07/02/23
19:18 04:54 06:18
WBC 7.8 6.4 6.7
Lab Results - Chemistry
06/29/23 06/30/23 07/02/23
19:18 04:54 06:18
BUN 16 14 22 H
Creatinine 0.8 0.6 0.8
Estimated Creat Clear 118 > 125 118
Albumin 4.2 3.8
06/29/23
19:18
Lactic Acid 1.4
Microbiology Results
06/29/23 19:26 Blood Culture - Preliminary
Blood/Venous No Growth in 48 hours- Final report to follow
06/29/23 19:18 Blood Culture - Preliminary
Blood/Venous No Growth in 48 hours- Final report to follow
06/29/23 19:26 Wound Culture - Preliminary
Toe Enterococcus species
Gram Stain - Preliminary
Therapeutic Drug Monitoring
Vancomycin Peak 25.5 ug/ml (18-26) 07/02/23 01:05
Vancomycin Trough 18.1 ug/ml (5-20) 07/02/23 06:18
[2023-07-02] MEDS: VANCOCIN 275 MG IV ×2 (08:31→18:24)
[2023-07-02] MEDS: VANCOCIN IV (08:45)
--- NOTE | 2023-07-02 10:37 | W.PN.ID1 ---
Date of Service
Date of Service: July 02, 2023
Today's Communication
Recommend toe amp.
Assessment / Plan
# Right hallus severe acute osteomyelitis and cellulitis
# Right hallux diabetic ulcer
- Recommend toe amputation
- Can continue Vancomycin and cefepime
#Additional Past Medical History:
Hypertension
Diabetes
Neuropathy
Dyslipidemia
Anxiety/depression
Class III obesity BMI 40
Chief Complaint
-: C-diff
Subjective / Review of Systems
No new complaints
Vital Signs / Physical Exam
Vital Signs
Vital Signs
Temp Pulse Resp BP Pulse Ox
98.0 F 91 16 111/76 98
07/02/23 07:17 07/02/23 07:18 07/02/23 07:17 07/02/23 07:18 07/02/23 07:17
Physical Exam
Constitutional: No Acute Distress and Obese
Extremities: Edema
Wound: Other (left great toe dressing with scant yellow fluid strike through)
Objective Data
Lab Data
Lab Results
07/02/23 06:18
07/02/23 06:18
Estimated Creat Clear 118 ml/min 07/02/23 06:18
Lactic Acid 1.4 mmol/L (0.7-2.0) 06/29/23 19:18
Total Bilirubin 0.4 mg/dl (0.2-1.3) 06/30/23 04:54
AST 20 U/L (14-36) 06/30/23 04:54
ALT 13 U/L (0-35) 06/30/23 04:54
Alkaline Phosphatase 71 U/L (38-126) 06/30/23 04:54
Most recent labs reviewed.
Micro Results:
06/29/23 19:26 Blood Culture - Preliminary
Blood/Venous No Growth in 48 hours- Final report to follow
06/29/23 19:18 Blood Culture - Preliminary
Blood/Venous No Growth in 48 hours- Final report to follow
06/29/23 19:26 Wound Culture - Preliminary
Toe Enterococcus species
Gram Stain - Preliminary
06/29/23 Toe XRAY: No focal cortical bony destructive process, radiopaque soft tissue foreign body or soft tissue air/gas.
07/02/23 MRI wo and w left foot: Extensive osteomyelitis throughout the great toe proximal and distal phalanges with intervening septic arthritis of the interphalangeal joint. Overlying plantar soft tissue defect with draining fluid tract extending
from the medial aspect of the interphalangeal joint.
Care Review
Plan reviewed with: Physician (Dr. Fitzgerald)
Total Time Spent with Patient (in minutes): Dr. Fitzgerald
[2023-07-02 11:21] LABS: Glucose - Point of Care 183 mg/dl (70-99)
[2023-07-02] MEDS: MAXIPIME 2000 MG IV ×2 (11:43→22:00)
[2023-07-02] MEDS: STERILE WATER FOR INJECTION 10 ML IV ×2 (11:43→22:01)
[2023-07-02] MEDS: NOVOLOG FLEXPEN-LOW RESISTANCE 1 UNITS SC (12:34)
--- NOTE | 2023-07-02 12:52 | W.PN.HOSP.TC ---
Today's Communication/Plan
-
Pending surgical podiatry consult.,
Assessment / Plan
Assessment / Plan
# Left big toe cellulitis rule out osteomyelitis
-Does not appear like deep infection however toe x-ray pending to evaluate for osteomyelitis given history of diabetes/diabetic neuropathy
-Wound culture pending
-Blood cultures pending
-Vancomycin, Zosyn
06/29
X-ray showed: The osseous structures comprising the left great toe appear intact without recent cortical fracture, dislocation or focal cortical bony destructive process.
Diffuse soft tissue swelling is noted. No radiopaque soft tissue foreign body or air/gas is seen.
Continue to antibiotic.
Podiatry consult.
Possible discharge tomorrow
06/30
Seen by podiatry and infectious disease.
Pending MRI
07/01
MRI done today shows Extensive osteomyelitis throughout the great toe proximal and distal phalanges with intervening septic arthritis of the interphalangeal joint. Overlying plantar soft tissue defect with draining fluid tract extending from the
medial aspect of the interphalangeal joint.
Consult surgical podiatry for possible toe amputation.
Type 2 diabetes
-Continue metformin
-Insulin sliding scale
Diabetic neuropathy
History of hypertension
Continue current meds
History of hyperlipidemia
Continue statin
Anxiety/depression
-Continue Seroquel, hydroxyzine
CODE STATUS: Full code
DVT prophylaxis: Heparin
Diet: Diabetic diet
Anticipated Discharge: > 48 hours
Subjective/Interval History
-
Date of Service: July 02, 2023
Patient seen and examined at bedside, denies any chest pain or shortness of breath, no abdominal pain, no nausea, no vomiting, no diarrhea or constipation.
MRI done today shows Extensive osteomyelitis throughout the great toe proximal and distal phalanges with intervening septic arthritis of the interphalangeal joint. Overlying plantar soft tissue defect with draining fluid tract extending from the
medial aspect of the interphalangeal joint.
Consult surgical podiatry.
Objective Data
-
Labs:
Laboratory Results
07/02/23
06:18
WBC 6.7
Hgb 11.8 L
Hct 36.0 L
Plt Count 330
Sodium 137
Potassium 5.0
Chloride 98
Carbon Dioxide 29
BUN 22 H
Creatinine 0.8
Glucose 134 H
Calcium 10.3 H
Vital Signs:
Vital Signs
Temp Pulse Resp BP Pulse Ox
98.0 F 91 16 111/76 98
07/02/23 07:17 07/02/23 07:18 07/02/23 07:17 07/02/23 07:18 07/02/23 07:17
I&O
07/01/23 07/02/23 07/03/23
06:59 06:59 06:59
Intake Total 1140 / 1140 1365 / 1365
Balance 1140 / 1140 1365 / 1365
Physical Exam
-
General: Well Developed and No Apparent Distress
HEENT: Normocephalic, Atraumatic and Moist Mucous Membranes
Respiratory: Clear to Auscultation
Cardiac: Regular Rhythm and S1/S2; Negative Murmur, Rub or Gallop
GI: Soft, Nontender, Nondistended and Normal Bowel Sounds; Negative Organomegaly
Rectal: Deferred by Provider
Musculoskeletal: Other (Left big toe swelling and redness)
Skin: Negative Rash
Neuro: Nonfocal/Grossly Intact
[2023-07-02 15:30] VITALS: BP 113/79
[2023-07-02 16:19] LABS: Glucose - Point of Care 115 mg/dl (70-99)
[2023-07-02 21:16] LABS: Glucose - Point of Care 140 mg/dl (70-99)
[2023-07-02] MEDS: FLUSH (NSS) 2 FLUSH IV (22:01)
[2023-07-02] MEDS: PROTONIX 40 MG PO (22:02)
[2023-07-02] MEDS: SEROQUEL 100 MG PO (22:02)
[2023-07-02] MEDS: PAMELOR 25 MG PO (22:02)
[2023-07-02] MEDS: LIPITOR 20 MG PO (22:02)
[2023-07-02] MEDS: MINIPRESS 2 MG PO (22:03)
[2023-07-02 23:28] VITALS: BP 113/74
[2023-07-03] MEDS: VANCOCIN 275 MG IV (05:21)
[2023-07-03] MEDS: FLUSH (NSS) 2 FLUSH IV ×2 (05:21→23:40)
[2023-07-03 07:00] VITALS: BP 123/79
[2023-07-03] MEDS: SUBUTEX 8 MG SL (07:07)
[2023-07-03 07:52] LABS: Glucose - Point of Care 124 mg/dl (70-99)
[2023-07-03] MEDS: ZESTRIL 5 MG PO (08:33)
[2023-07-03] MEDS: NOVOLOG FLEXPEN-LOW RESISTANCE SC ×2 (08:33→11:48)
[2023-07-03] MEDS: MIRALAX 17 GRAMS PO (08:33)
[2023-07-03] MEDS: ORETIC 25 MG PO (08:33)
[2023-07-03] MEDS: CYMBALTA DELAYED RELEASE 60 MG PO (08:33)
[2023-07-03] MEDS: CYMBALTA DELAYED RELEASE 30 MG PO (08:33)
[2023-07-03] MEDS: HEPARIN 5000 UNITS SC ×2 (08:34→20:00)
--- NOTE | 2023-07-03 09:05 | W.PN.HOSP.TC ---
Today's Communication/Plan
-
IV antibiotics. Plan for toe amputation tomorrow.
Assessment / Plan
Assessment / Plan
Physical exam:
General: Acutely ill
HEENT: Normocephalic, Atraumatic and Moist Mucous Membranes
Respiratory: Clear to Auscultation; Negative Wheezes, Rales or Rhonchi
Cardiac: Regular Rhythm and S1/S2
GI: Soft, Nontender and Nondistended
Musculoskeletal: Left big toe redness and swelling. No Clubbing, No Cyanosis and No Edema
Neuro: Awake, Alert and Oriented
Psych: Calm
A/P:
# Left big toe cellulitis with osteomyelitis/Infected left hallux ulcer with septic arthritis of the interphalangeal joint and osteomyelitis of the distal and proximal phalanx
-Does not appear like deep infection however toe x-ray pending to evaluate for osteomyelitis given history of diabetes/diabetic neuropathy
-Wound culture pending
-Blood cultures pending
-Vancomycin, Zosyn
06/29
X-ray showed: The osseous structures comprising the left great toe appear intact without recent cortical fracture, dislocation or focal cortical bony destructive process.
Diffuse soft tissue swelling is noted. No radiopaque soft tissue foreign body or air/gas is seen.
Continue to antibiotic.
Podiatry consult.
Possible discharge tomorrow
06/30
Seen by podiatry and infectious disease.
Pending MRI
07/01
MRI done today shows Extensive osteomyelitis throughout the great toe proximal and distal phalanges with intervening septic arthritis of the interphalangeal joint. Overlying plantar soft tissue defect with draining fluid tract extending from the
medial aspect of the interphalangeal joint.
Consult surgical podiatry for possible toe amputation.
07/02
Blood cultures no growth
Wound cultures with Enterococcus faecalis
Reviewed MRI as above with extensive osteomyelitis.
Change antibiotics per ID today, from IV cefepime and vancomycin change to IV Zosyn today.
Surgical bow maker custom evaluated patient today. Plan for amputation of toe tomorrow
Type 2 diabetes
-Continue metformin. Not well-controlled overall-see below. Hemoglobin A1c 6.6
-Insulin sliding scale--> increase to moderate resistant coverage today. Might need further adjustment but will reevaluate.
Diabetic neuropathy
History of hypertension
Continue current meds
History of hyperlipidemia
Continue statin
Anxiety/depression
-Continue Seroquel, hydroxyzine
CODE STATUS: Full code
DVT prophylaxis: Heparin
Diet: Diabetic diet
Anticipated Discharge: > 48 hours
Subjective/Interval History
-
Date of Service: July 03, 2023
Patient denies any pain on her foot due to neuropathy. Denies nausea vomiting or diarrhea. Afebrile. Denies chest pain or shortness of breath.
Objective Data
-
Vital Signs:
Vital Signs
Temp Pulse Resp BP Pulse Ox
98.2 F 93 18 123/79 98
07/03/23 07:00 07/03/23 08:33 07/03/23 07:00 07/03/23 08:33 07/03/23 07:00
I&O
07/02/23 07/03/23 07/04/23
06:59 06:59 06:59
Intake Total 1365 / 1365 1235 / 1235
Balance 1365 / 1365 1235 / 1235
--- NOTE | 2023-07-03 09:56 | W.PN.ID1 ---
Date of Service
Date of Service: July 03, 2023
Today's Communication
See below.
Assessment / Plan
# Right hallus severe acute osteomyelitis and cellulitis
# Right hallux diabetic ulcer
- Agree with toe amputation as per podiatry.
- Consolidate Vanco/cefepime to Zosyn.
#Additional Past Medical History:
Hypertension
Diabetes
Neuropathy
Dyslipidemia
Anxiety/depression
Class III obesity BMI 40
Chief Complaint
-: Cellulitis and Other (osteo)
Subjective / Review of Systems
No new complaints
Vital Signs / Physical Exam
Vital Signs
Vital Signs
Temp Pulse Resp BP Pulse Ox
98.2 F 93 18 123/79 98
07/03/23 07:00 07/03/23 08:33 07/03/23 07:00 07/03/23 08:33 07/03/23 07:00
Physical Exam
Constitutional: No Acute Distress
Gastrointestinal: Soft, Non Tender and Non Distended
Objective Data
Lab Data
Estimated Creat Clear 118 ml/min 07/02/23 06:18
Lactic Acid 1.4 mmol/L (0.7-2.0) 06/29/23 19:18
Total Bilirubin 0.4 mg/dl (0.2-1.3) 06/30/23 04:54
AST 20 U/L (14-36) 06/30/23 04:54
ALT 13 U/L (0-35) 06/30/23 04:54
Alkaline Phosphatase 71 U/L (38-126) 06/30/23 04:54
Most recent labs reviewed.
Micro Results:
06/29/23 19:26 Blood Culture - Preliminary
Blood/Venous No Growth in 72 hours- Final report to follow
06/29/23 19:18 Blood Culture - Preliminary
Blood/Venous No Growth in 72 hours- Final report to follow
06/29/23 19:26 Wound Culture - Final
Toe Enterococcus faecalis
Gram Stain - Final
06/29/23 Toe XRAY: No focal cortical bony destructive process, radiopaque soft tissue foreign body or soft tissue air/gas.
07/02/23 MRI wo and w left foot: Extensive osteomyelitis throughout the great toe proximal and distal phalanges with intervening septic arthritis of the interphalangeal joint. Overlying plantar soft tissue defect with draining fluid tract extending
from the medial aspect of the interphalangeal joint.
Care Review
Plan reviewed with: Physician (Dr. Torres)
[2023-07-03 10:04] LABS: % Basophils 0.4 % (0-2); % Eosinophils 6.9 % (0-6); % Immature Granulocytes 0.5 % (0-0.5); % Lymphocytes 42.8 % (20.5-51.1); % Monocytes 6.7 % (1.7-9.3); % Neutrophils 42.7 % (42.2-75.2); Absolute Eosinophils 0.5 10^3/uL (0-0.7); Absolute Lymphocytes 3.3 10^3/uL (1.2-3.4); Absolute Monocytes 0.5 10^3/uL (0.1-0.6); Absolute Neutrophils 3.3 10^3/uL (1.4-6.5); Hematocrit 38.2 % (37.0-47.0); Hemoglobin 12.2 g/dL (12.0-16.0); Mean Corp Hgb Conc. 31.9 g/dL (33.0-37.0); Mean Corpuscular Hgb 27.5 pg (27.0-31.0); Mean Platelet Volume 8.1 fL (7.4-10.4); Nucleated Red Blood Cells % 0 %; Platelet Count 314 10^3/uL (130-400); Red Blood Cell Count 4.44 10^6/uL (4.20-5.40); Red Cell Dist. Width 11.5 % (11.5-14.5); White Blood Cell Count 7.7 10^3/uL (4.8-10.8)
--- NOTE | 2023-07-03 10:21 | CON.MD ---
Consultation - Medical
-
37 year old female sent to the ED from [facility] with swelling and drainage from the left great toe. She developed a blister on the bottom of the toe and was treated for 2 weeks with oral Clindamycin. Redness and swelling then
progressed to the top of the great toe and she was brought to the ED.
PMH includes Diabetes with peripheral neuropathy (HgbA1c 6.1), Hypertension, Hypercholesterolemia, Anxiety and Depression
Patient is afebrile with WBC WNL, Wound culture Enterococcus Faecalis
Radiographs with no cortical destruction or gas in tissue, but MR shows septic arthritis of the IPJ with osteomyelitis throughout the proximal and distal phalanx.
On examination, pedal pulses are palpable bilaterally, edema and erythema localized to the left hallux. No discomfort due to peripheral neuropathy. 0.25 cm ulcer plantar medial hallux probes directly to the IPJ.
Impression/Plan
-Infected left hallux ulcer with septic arthritis of the interphalangeal joint and osteomyelitis of the distal and proximal phalanx
Discussed with patient and Dr. Garcia that infection will not resolve and amputation of the toe is warranted. Patient agreed to procedure. Will send bone culture to determine whether intermodal customer service IV antibiotic therapy is needed
Scheduled for Tuesday morning left hallux amputation
-Diabetes mellitus
associated peripheral neuropathy
well controlled
[2023-07-03 10:29] LABS: Blood Urea Nitrogen 24 mg/dl (7-17); Carbon Dioxide 28 mmol/L (22-30); Chloride 97 mmol/L (98-107); Estimated Creatinine Clearance > 125 ml/min; Glucose 182 mg/dl (70-99); Sodium 135 mmol/L (135-145); eGFR > 60.00
[2023-07-03 11:47] LABS: Glucose - Point of Care 119 mg/dl (70-99)
[2023-07-03] MEDS: ZOSYN 50 IV ×3 (11:53→23:40)
[2023-07-03 15:00] VITALS: BP 116/73
[2023-07-03 16:50] LABS: Glucose - Point of Care 157 mg/dl (70-99)
[2023-07-03] MEDS: NOVOLOG FLEXPEN-MODERATE RESISTANCE 1 UNITS SC (17:44)
[2023-07-03 21:12] LABS: Glucose - Point of Care 186 mg/dl (70-99)
[2023-07-03] MEDS: SEROQUEL 100 MG PO (21:55)
[2023-07-03] MEDS: LIPITOR 20 MG PO (21:55)
[2023-07-03] MEDS: PROTONIX 40 MG PO (21:55)
[2023-07-03] MEDS: PAMELOR 25 MG PO (21:55)
[2023-07-03] MEDS: MINIPRESS 2 MG PO (21:57)
[2023-07-03 23:40] VITALS: BP 121/74
[2023-07-04] VITALS (14 sets, daily range): BP systolic 103–124; BP diastolic 61–77
[2023-07-04] MEDS: ZOSYN 50 IV ×4 (06:02→23:28)
[2023-07-04 06:04] LABS: Glucose - Point of Care 121 mg/dl (70-99)
[2023-07-04] MEDS: NOVOLOG FLEXPEN-MODERATE RESISTANCE SC ×3 (06:18→16:37)
[2023-07-04] MEDS: SUBUTEX 8 MG SL (07:45)
[2023-07-04] MEDS: CYMBALTA DELAYED RELEASE 60 MG PO (07:45)
[2023-07-04] MEDS: CYMBALTA DELAYED RELEASE 30 MG PO (07:45)
[2023-07-04] MEDS: ZESTRIL 5 MG PO (07:45)
[2023-07-04] MEDS: HEPARIN 5000 UNITS SC ×2 (07:46→21:16)
[2023-07-04] MEDS: ORETIC 25 MG PO (07:46)
[2023-07-04] MEDS: MIRALAX PO (07:47)
[2023-07-04 08:16] LABS: % Basophils 0.9 % (0-2); % Eosinophils 6.4 % (0-6); % Immature Granulocytes 0.6 % (0-0.5); % Lymphocytes 46.4 % (20.5-51.1); % Monocytes 5.9 % (1.7-9.3); % Neutrophils 39.8 % (42.2-75.2); Absolute Basophils 0.1 10^3/uL (0-0.2); Absolute Eosinophils 0.5 10^3/uL (0-0.7); Absolute Immature Granulocytes 0.1 10^3/uL (0-0.05); Absolute Lymphocytes 3.7 10^3/uL (1.2-3.4); Absolute Monocytes 0.5 10^3/uL (0.1-0.6); Absolute Neutrophils 3.2 10^3/uL (1.4-6.5); Hematocrit 36.7 % (37.0-47.0); Hemoglobin 12.2 g/dL (12.0-16.0); Mean Corp Hgb Conc. 33.2 g/dL (33.0-37.0); Mean Corpuscular Hgb 27.6 pg (27.0-31.0); Mean Platelet Volume 8.1 fL (7.4-10.4); Nucleated Red Blood Cells % 0 %; Platelet Count 338 10^3/uL (130-400); Red Blood Cell Count 4.42 10^6/uL (4.20-5.40); Red Cell Dist. Width 11.7 % (11.5-14.5)
--- NOTE | 2023-07-04 09:14 | W.PN.UPDATE ---
Update Note
Progress Note Update
For left hallux amputation today. Patient tolerated procedure and anesthesia without complication and returned to recovery room with vital signs stable and neurovascular status in tact. Obvious defect at plantar distal proximal phalanx from
osteomyelitis. Remaining bone and soft tissue appear free of infection. Partially closed and packed medially. Bone sent for path and culture including clean bone margin, but it appears as all infection surgically excised. Partial weight bearing
today, then full weight bearing tomorrow with surgical shoe.
[2023-07-04 09:17] LABS: Blood Urea Nitrogen 22 mg/dl (7-17); Calcium 9.8 mg/dl (8.4-10.2); Carbon Dioxide 28 mmol/L (22-30); Chloride 97 mmol/L (98-107); Estimated Creatinine Clearance > 125 ml/min; Glucose 125 mg/dl (70-99); Potassium 4.3 mmol/L (3.5-5.1); Sodium 137 mmol/L (135-145); eGFR > 60.00
[2023-07-04] MEDS: DILAUDID 0.5 MG IV ×4 (09:27→22:40)
[2023-07-04 09:29] LABS: Glucose - Point of Care 124 mg/dl (70-99)
[2023-07-04 10:52] LABS: Glucose - Point of Care 139 mg/dl (70-99)
--- NOTE | 2023-07-04 13:17 | W.PN.ID1 ---
Date of Service
Date of Service: July 04, 2023
Today's Communication
Continue Zosyn
Assessment / Plan
# Right hallus severe acute osteomyelitis and cellulitis
# Right hallux diabetic ulcer
- 07/03 s/p toe amputation. Cx path pending
- Continue Zosyn.
#Additional Past Medical History:
Hypertension
Diabetes
Neuropathy
Dyslipidemia
Anxiety/depression
Class III obesity BMI 40
Chief Complaint
-: Cellulitis and Other (osteo)
Subjective / Review of Systems
Surgery went well today.
Vital Signs / Physical Exam
Vital Signs
Vital Signs
Temp Pulse Resp BP Pulse Ox
97.7 F 85 18 108/68 98
07/04/23 10:54 07/04/23 10:54 07/04/23 10:54 07/04/23 10:54 07/04/23 10:54
Physical Exam
Constitutional: No Acute Distress
Pulmonary: Clear
Gastrointestinal: Soft and Non Tender
Objective Data
Lab Data
Lab Results
07/04/23 06:28
07/04/23 06:28
Estimated Creat Clear > 125 ml/min 07/04/23 06:28
Lactic Acid 1.4 mmol/L (0.7-2.0) 06/29/23 19:18
Total Bilirubin 0.4 mg/dl (0.2-1.3) 06/30/23 04:54
AST 20 U/L (14-36) 06/30/23 04:54
ALT 13 U/L (0-35) 06/30/23 04:54
Alkaline Phosphatase 71 U/L (38-126) 06/30/23 04:54
Most recent labs reviewed.
Micro Results:
07/04/23 09:30 Tissue Culture - Pending
Toe Gram Stain - Preliminary
06/29/23 19:26 Blood Culture - Preliminary
Blood/Venous No Growth in 4 days- Final report to follow
06/29/23 19:18 Blood Culture - Preliminary
Blood/Venous No Growth in 4 days- Final report to follow
06/29/23 19:26 Wound Culture - Final
Toe Enterococcus faecalis
Gram Stain - Final
06/29/23 Toe XRAY: No focal cortical bony destructive process, radiopaque soft tissue foreign body or soft tissue air/gas.
07/02/23 MRI wo and w left foot: Extensive osteomyelitis throughout the great toe proximal and distal phalanges with intervening septic arthritis of the interphalangeal joint. Overlying plantar soft tissue defect with draining fluid tract extending
from the medial aspect of the interphalangeal joint.
--- NOTE | 2023-07-04 13:20 | W.PN.HOSP.TC ---
Today's Communication/Plan
-
Continue current care
Assessment / Plan
Assessment / Plan
Physical exam:
General: Acutely ill
HEENT: Normocephalic, Atraumatic and Moist Mucous Membranes
Respiratory: Clear to Auscultation; Negative Wheezes, Rales or Rhonchi
Cardiac: Regular Rhythm and S1/S2
GI: Soft, Nontender and Nondistended
Musculoskeletal: Left big toe redness and swelling. No Clubbing, No Cyanosis and No Edema, left foot surgical dressing intact
Neuro: Awake, Alert and Oriented
Psych: Calm
Acute left first toe cellulitis with osteomyelitis/Infected left hallux ulcer with septic arthritis of the interphalangeal joint and osteomyelitis of the distal and proximal phalanx -stable after toe amputation today. IV Zosyn per infectious
disease. Bone cultures sent from the OR, pending.
Left foot heel touch today, full weightbearing tomorrow with surgical shoe as per podiatry.
DM2 without hyperglycemia
-Continue metformin. Not well-controlled overall-see below. Hemoglobin A1c 6.6
-Insulin sliding scale--> increase to moderate resistant coverage today. Might need further adjustment but will reevaluate.
Diabetic neuropathy
Essential hypertension
Continue current meds
Hyperlipidemia
Continue statin
Anxiety/depression
-Continue Seroquel, hydroxyzine
Morbid obesity due to excess calories
CODE STATUS: Full code
Anticipated Discharge: 24 - 48 hours
Subjective/Interval History
-
Date of Service: July 04, 2023
Patient seen and examined. No complaints.
Objective Data
-
Labs:
Laboratory Results
07/04/23
06:28
WBC 8.0
Hgb 12.2
Hct 36.7 L
Plt Count 338
Sodium 137
Potassium 4.3
Chloride 97 L
Carbon Dioxide 28
BUN 22 H
Creatinine 0.7
Glucose 125 H
Calcium 9.8
Vital Signs:
Vital Signs
Temp Pulse Resp BP Pulse Ox
97.7 F 85 18 108/68 98
07/04/23 10:54 07/04/23 10:54 07/04/23 10:54 07/04/23 10:54 07/04/23 10:54
I&O
07/03/23 07/04/23 07/05/23
06:59 06:59 06:59
Intake Total 1235 / 1235 960 / 960 100 / 100
Balance 1235 / 1235 960 / 960 100 / 100
Review of Systems
-
History Source: Patient
All other systems: Reviewed and negative
[2023-07-04 16:35] LABS: Glucose - Point of Care 136 mg/dl (70-99)
[2023-07-04] MEDS: PROTONIX 40 MG PO (21:16)
[2023-07-04] MEDS: SEROQUEL 100 MG PO (21:16)
[2023-07-04] MEDS: MINIPRESS 2 MG PO (21:17)
[2023-07-04] MEDS: LIPITOR 20 MG PO (21:21)
[2023-07-04] MEDS: PAMELOR 25 MG PO (21:21)
[2023-07-04 21:37] LABS: Glucose - Point of Care 151 mg/dl (70-99)
[2023-07-05] MEDS: DILAUDID 0.5 MG IV ×3 (04:21→16:59)
[2023-07-05] MEDS: ZOSYN 50 IV ×3 (05:07→17:00)
[2023-07-05] MEDS: SUBUTEX 8 MG SL (06:27)
[2023-07-05 07:00] VITALS: BP 112/63
[2023-07-05 07:51] LABS: Glucose - Point of Care 152 mg/dl (70-99)
[2023-07-05] MEDS: HEPARIN 5000 UNITS SC (08:13)
[2023-07-05] MEDS: NOVOLOG FLEXPEN-MODERATE RESISTANCE 1 UNITS SC ×2 (08:13→16:58)
[2023-07-05] MEDS: CYMBALTA DELAYED RELEASE 60 MG PO (08:15)
[2023-07-05] MEDS: CYMBALTA DELAYED RELEASE 30 MG PO (08:15)
[2023-07-05] MEDS: ORETIC 25 MG PO (08:16)
[2023-07-05] MEDS: MIRALAX 17 GRAMS PO (08:16)
[2023-07-05] MEDS: ZESTRIL 5 MG PO (08:16)
[2023-07-05 11:37] LABS: Glucose - Point of Care 139 mg/dl (70-99)
[2023-07-05] MEDS: NOVOLOG FLEXPEN-MODERATE RESISTANCE SC (11:45)
[2023-07-05] MEDS: MOBIC 7.5 MG PO (11:54)
--- NOTE | 2023-07-05 12:30 | W.PN.HOSP.TC ---
Addendum entered and electronically signed by Goldy Erickson DO 07/05/23 13:16:
Okay to discharge per podiatry and ID once surgical shoe has been delivered.
Augmentin x 7 days on discharge per ID.
Outpatient follow-up.
Original Note:
Today's Communication/Plan
-
Resume metformin
Await podiatry and ID input
Assessment / Plan
Assessment / Plan
Physical exam:
General: Acutely ill
HEENT: Normocephalic, Atraumatic and Moist Mucous Membranes
Respiratory: Clear to Auscultation; Negative Wheezes, Rales or Rhonchi
Cardiac: Regular Rhythm and S1/S2
GI: Soft, Nontender and Nondistended
Musculoskeletal: Left big toe redness and swelling. No Clubbing, No Cyanosis and No Edema, left foot surgical dressing intact
Neuro: Awake, Alert and Oriented
Psych: Calm
Acute left first toe cellulitis with osteomyelitis/Infected left hallux ulcer with septic arthritis of the interphalangeal joint and osteomyelitis of the distal and proximal phalanx -stable after toe amputation 07/03. IV Zosyn per infectious
disease. Bone cultures sent from the OR, pending.
Awaiting surgical shoe delivery for weightbearing.
DM2 without hyperglycemia
-Resume metformin. Not well-controlled overall-see below. Hemoglobin A1c 6.6
-Insulin sliding scale--> increase to moderate resistant coverage today. Might need further adjustment but will reevaluate.
Diabetic neuropathy
Essential hypertension
Continue current meds
Hyperlipidemia
Continue statin
Anxiety/depression
-Continue Seroquel, hydroxyzine
Morbid obesity due to excess calories
CODE STATUS: Full code
[facility]po - back to [facility] when medically cleared.
Anticipated Discharge: Within 24 hours
Subjective/Interval History
-
Date of Service: July 05, 2023
Patient seen and examined. Complaining of some foot pain.
Objective Data
-
Vital Signs:
Vital Signs
Temp Pulse Resp BP Pulse Ox
98.0 F 81 18 120/63 97
07/05/23 07:00 07/05/23 08:16 07/05/23 07:00 07/05/23 08:16 07/05/23 09:57
I&O
07/04/23 07/05/23 07/06/23
06:59 06:59 06:59
Intake Total 960 / 960 1130 / 1130
Balance 960 / 960 1130 / 1130
Review of Systems
-
History Source: Patient
All other systems: Reviewed and negative
--- NOTE | 2023-07-05 13:01 | W.PN.ID1 ---
Date of Service
Date of Service: July 05, 2023
Today's Communication
Can transition Zosyn to Augmentin 875mg po bid x 7 more days.
Assessment / Plan
# Right hallus severe acute osteomyelitis and cellulitis
# Right hallux diabetic ulcer
- 07/03 s/p toe amputation. Cx: neg to date; path pending
- Likely surgical cure per Podiatry.
- Can transition Zosyn to Augmentin 875mg po bid x 7 more days.
#Additional Past Medical History:
Hypertension
Diabetes
Neuropathy
Dyslipidemia
Anxiety/depression
Class III obesity BMI 40
Chief Complaint
-: Cellulitis and Other (osteo)
Vital Signs / Physical Exam
Vital Signs
Vital Signs
Temp Pulse Resp BP Pulse Ox
98.0 F 81 18 120/63 97
07/05/23 07:00 07/05/23 08:16 07/05/23 07:00 07/05/23 08:16 07/05/23 09:57
Physical Exam
Constitutional: No Acute Distress
Wound: Other (foot dressing intact)
Objective Data
Lab Data
Lab Results
07/04/23 06:28
07/04/23 06:28
Estimated Creat Clear > 125 ml/min 07/04/23 06:28
Lactic Acid 1.4 mmol/L (0.7-2.0) 06/29/23 19:18
Total Bilirubin 0.4 mg/dl (0.2-1.3) 06/30/23 04:54
AST 20 U/L (14-36) 06/30/23 04:54
ALT 13 U/L (0-35) 06/30/23 04:54
Alkaline Phosphatase 71 U/L (38-126) 06/30/23 04:54
Most recent labs reviewed.
Micro Results:
07/04/23 09:30 Tissue Culture - Preliminary
Toe No Growth After 18-24 Hours
Gram Stain - Preliminary
06/29/23 19:26 Blood Culture - Final
Blood/Venous No Growth - Final Report
06/29/23 19:18 Blood Culture - Final
Blood/Venous No Growth - Final Report
06/29/23 19:26 Wound Culture - Final
Toe Enterococcus faecalis
Gram Stain - Final
06/29/23 Toe XRAY: No focal cortical bony destructive process, radiopaque soft tissue foreign body or soft tissue air/gas.
07/02/23 MRI wo and w left foot: Extensive osteomyelitis throughout the great toe proximal and distal phalanges with intervening septic arthritis of the interphalangeal joint. Overlying plantar soft tissue defect with draining fluid tract extending
from the medial aspect of the interphalangeal joint.
Care Review
Plan reviewed with: Physician (Drs. Erickson, Sandy)
--- NOTE | 2023-07-05 13:07 | W.PN.POD ---
Today's Communication
Today's Communication
Surgical cure therefore ok for discharge with daily wound care and surgical shoe
Assessment / Plan
-
One day status post left hallux amputation due to septic arthritis of the IPJ and osteomyelitis distal and proximal phalanx
-Stable today, packing removed. Sutures in tact with no cellulitis present
-Intra operative evaluation showed focal defect in the plantar central aspect of the proximal phalanx. Bone proximal to the defect appeared healthy as did the surrounding soft tissue, therefore likely surgical cure
-OK to discharge with oral antibiotics, surgical shoe for ambulation. Keep area dry while showering and dry dressing changes daily
-Discussed with patient that she must not pick at callouses present on the bottoms of her feet as infection can occur again.
Diabetes mellitus with peripheral neuropathy
Subjective
Objective
Temp Pulse Resp BP Pulse Ox
98.0 F 81 18 120/63 97
07/05/23 07:00 07/05/23 08:16 07/05/23 07:00 07/05/23 08:16 07/05/23 09:57
07/04/23 06:28
07/04/23 06:28
Vital Signs and Lab results were reviewed.
Physical Exam
Physical Exam
Dressing clean, dry and in tact. Packing removed and no drainage noted. Sutures in tact with no dehiscense.
--- NOTE | 2023-07-05 13:21 | W.DS.TRANS ---
DC Summary - [employer]
-
Discharge Instructions:
Discharge Diagnosis/Procedures Left first toe osteomyelitis
Diet Diabetic, Carb Controlled
Activity As tolerated
Additional Activity Use surgical shoe on left foot when ambulating
Driving Restrictions No driving
Bathing Restrictions None
Instructions:
Stand-Alone Forms:
Changes to Home Medications: No
Discharge Medications:
DC Medications w/original date entered in [facility]
atorvastatin 20 mg tablet 20 mg PO HS High Cholesterol 06/29/23
buprenorphine HCl 8 mg sublingual tablet 8 mg sublingual DAILY@0700 substance use disorder 06/29/23
docusate sodium 100 mg capsule 100 mg PO BID PRN constipation 06/29/23
duloxetine 30 mg capsule,delayed release (Cymbalta) 30 mg PO DAILY mental health 06/29/23
duloxetine 60 mg capsule,delayed release (Cymbalta) 60 mg PO DAILY mental health 06/29/23
hydrochlorothiazide 25 mg tablet 25 mg PO DAILY Blood Pressure 06/29/23
hydroxyzine pamoate 25 mg capsule 75 mg PO BID PRN anxiety 06/29/23
lisinopril 5 mg tablet 5 mg PO DAILY Blood Pressure 06/29/23
meloxicam 7.5 mg tablet 7.5 mg PO BIDPRN PRN mild pain 06/29/23
metformin 500 mg tablet 500 mg PO BID Diabetes 06/29/23
nortriptyline 25 mg capsule 25 mg PO HS sleep/mental health 06/29/23
omeprazole 20 mg capsule,delayed release 20 mg PO HS Gastrointestinal Issue 06/29/23
polyethylene glycol 3350 17 gram oral powder packet (Miralax) 17 g PO DAILY Constipation 06/29/23
prazosin 1 mg capsule 2 mg PO HS mental health 06/29/23
quetiapine 50 mg tablet 100 mg PO HS sleep/mental health 06/29/23
vit S-ibnbfkle-ubidfeoyhzt lotion (Cetaphil Moisturizing lotion) 1 applic topical BIDPRN PRN affected area 06/29/23
amoxicillin 875 mg-potassium clavulanate 125 mg tablet 1 tab PO BID #14 tabs 07/05/23
Home Medication Changes
Pending Results: No
--- NOTE | 2023-07-05 13:59 | CM ---
Pt for discharge today to [facility]
Spoke with Ebenezer at [facility] - aware
Plan - Transfer to [facility]
R - [phone]
F [phone]
[2023-07-05 15:00] VITALS: BP 108/68
[2023-07-05 16:40] LABS: Glucose - Point of Care 151 mg/dl (70-99)
[2023-07-05] MEDS: GLUCOPHAGE 500 MG PO (16:58)
== END 2023-07-05 17:59 | DRG 617 ==
LOC: 3 WEST ACU 21:28
PROVIDERS: Clinical Nurse Specialist Family Health; General Practice; Hospitalist; Internal Medicine Infectious Disease; ADMITTING PHYSICIAN Hospitalist; ATTENDING PHYSICIAN Hospitalist; CONSULT PHYSICIAN Podiatrist Foot & Ankle Surgery; EMERGENCY PHYSICIAN Emergency Medicine; OTHER PHYSICIAN Internal Medicine Infectious Disease
PROC: 0Y6Q0Z0 Detachment at Left 1st Toe, Complete, Open Approach (ICD-10-PCS; 2023-07-04)
DX: E11.69 Type 2 diabetes mellitus with other specified complication (principal); M00.9 Pyogenic arthritis, unspecified; Z68.41 Body mass index [BMI] 40.0-44.9, adult; M86.172 Other acute osteomyelitis, left ankle and foot; E11.42 Type 2 diabetes mellitus with diabetic polyneuropathy; L03.032 Cellulitis of left toe; Z87.891 Personal history of nicotine dependence; E11.628 Type 2 diabetes mellitus with other skin complications; I10 Essential (primary) hypertension; E78.00 Pure hypercholesterolemia, unspecified; F32.A Depression, unspecified; F41.9 Anxiety disorder, unspecified; L97.529 Non-pressure chronic ulcer of other part of left foot with unspecified severity; E11.621 Type 2 diabetes mellitus with foot ulcer; E78.5 Hyperlipidemia, unspecified; E66.01 Morbid (severe) obesity due to excess calories
CPT/HCPCS: 88305; 88307; 88311; 73620; 73660; 73720; 80048; 80053; 80202; 82962; 83036; 83605; 84703; 85025; 85027; 87040; 87070; 87077; 87176; 87186; 87205; 96365; 96366; 96367; 96375; 99284